=== PATIENT | male | born 1990 | race Caucasian/White ===

== ENCOUNTER 2018-08-19 12:43 | Inpatient (IN) ==
[2018-08-19] MEDS ORDERED: Diphtheria/Tetanus/Pertussis Vaccine Inj 0.5 ML Syringe IM ONE (12:49)
[2018-08-19] MEDS ORDERED: ceFAZolin 2 GM Premix Inj 2 GM/50 ML PIGGYBACK IV.SIG ONE (12:49)
[2018-08-19] MEDS ORDERED: Morphine Sulfate Inj 2 MG/ML Vial ONE (12:58)
[2018-08-19 13:09] LABS: Baso % (Auto) 0.3 % (0.0-2.0); Eos # (Auto) 0.2 th/mm3 (0.0-0.4); Eos % (Auto) 1.4 % (0.0-4.0); Hematocrit 40.1 % (39.0-51.0); Hemoglobin 13.4 gm/dL (13.0-17.0); Lymph # (Auto) 3.2 th/mm3 (1.0-4.8); Lymph % (Auto) 20.8 % (9.0-44.0); Mean Corpuscular HGB Conc 33.5 % (32.0-36.0); Mean Corpuscular Hemoglobin 28.7 pg (27.0-34.0); Mean Corpuscular Volume 85.8 fL (80.0-100.0); Mean Platelet Volume 9.5 fL (7.0-11.0); Mono # (Auto) 0.6 th/mm3 (0.0-0.9); Mono % (Auto) 4.1 % (0.0-8.0); Neut # (Auto) 11.2 th/mm3 (1.8-7.7); Neut % (Auto) 73.4 % (16.0-70.0); Platelet Count 228 th/mm3 (150-450); Red Blood Count 4.68 mil/mm3 (4.50-5.90); Red Cell Distribution Width 13.3 % (11.6-17.2); White Blood Count 15.2 th/mm3 (4.0-11.0)
--- NOTE | 2018-08-19 13:19 | CT ---
EXAM DATE: 08/19/2018 1:13 PM EST AGE/SEX: 89 years / Male INDICATIONS: Trauma alert fall from about eighteen feet CLINICAL DATA: This is the patient's initial encounter. Patient reports that signs and symptoms have been present for 1 day and indicates a pain score of Nonresponsive. MEDICAL/SURGICAL HISTORY: . Unable to obtain . Unable to obtain RADIATION DOSE: 56.35 CTDI (mGy) COMPARISON: No prior exams available for comparison. TECHNIQUE: CT of the head without contrast. Using automated exposure control and adjustment of the mA and/or kV according to patient size, radiation dose was kept as low as reasonably achievable to ob tain optimal diagnostic quality images. DICOM format image data is available electronically for revi ew and comparison. FINDINGS: Cerebrum: The ventricles are normal for age. No evidence of midline shift, mass lesion, hemorrhage or acute infarction. No extraaxial fluid collections are seen. Posterior Fossa: The cerebellum and brainstem are intact. The 4th ventricle is midline. The cerebe llopontine angle is unremarkable. Extracranial: The visualized portion of the orbits is intact. Skull: The calvaria is intact. No evidence of skull fracture. CONCLUSION: 1. No focal or acute intracranial hemorrhage. . . Electronically signed by: Tello Dowinng MD Board Certified Radiologist 08/19/2018 1:18 PM EST
--- NOTE | 2018-08-19 13:25 | XR ---
EXAM DATE: 08/19/2018 1:10 PM EST AGE/SEX: 89 years / Male INDICATIONS: Trauma alert, fall. CLINICAL DATA: This is the patient's initial encounter. Patient reports that signs and symptoms have been present for 1 day and indicates a pain score of Nonresponsive. MEDICAL/SURGICAL HISTORY: Non-responsive. Non-responsive. COMPARISON: No prior exams available for comparison. FINDINGS: There is a spiral fracture through the subtrochanteric region of the proximal left femur. The femoral head remains within the acetabulum. The mid and distal shaft of the femur appear to be grossly intac t. CONCLUSION: Spiral fracture through the subtrochanteric region of the proximal left femur. Electronically signed by: Tello Downing MD Board Certified Radiologist 08/19/2018 1:24 PM EST
--- NOTE | 2018-08-19 13:25 | XR ---
EXAM DATE: 08/19/2018 1:11 PM EST AGE/SEX: 89 years / Male INDICATIONS: Trauma alert, fall. CLINICAL DATA: This is the patient's initial encounter. Patient reports that signs and symptoms have been present for 1 day and indicates a pain score of Nonresponsive. MEDICAL/SURGICAL HISTORY: Non-responsive. Non-responsive. COMPARISON: No prior exams available for comparison. FINDINGS: Patient is on a trauma board. AP view of the pelvis demonstrates a spiral fracture through the subtro chanteric region of the left femur. No definite joint dislocation is seen at the hip joints. There is good alignment of the SI joints and pubic symphysis. However, there is irregularity involving the moreno perior and inferior pubic portions of the ramus bilaterally suggestive of nondisplaced pelvic fractur es.. CONCLUSION: 1. There is a spiral type fracture involving the subtrochanteric region of the left proximal femur. 2. There appear to be bilateral pelvic fractures. This will be further evaluated with a CT scan of t he abdomen/pelvis. Electronically signed by: Tello Downing MD Board Certified Radiologist 08/19/2018 1:23 PM EST
[2018-08-19 13:27] LABS: Activated Partial Thrombo Time 20.1 sec (23.4-31.7); Prothrombin Time 10.4 sec (9.8-11.6)
[2018-08-19] MEDS ORDERED: Morphine Sulfate Inj 2 MG/ML Vial IV.PUSH ONE (13:28)
--- NOTE | 2018-08-19 13:41 | XR ---
EXAM DATE: 08/19/2018 1:09 PM EST AGE/SEX: 89 years / Male INDICATIONS: Trauma alert, fall. CLINICAL DATA: This is the patient's initial encounter. Patient reports that signs and symptoms have been present for 1 day and indicates a pain score of Nonresponsive. MEDICAL/SURGICAL HISTORY: Non-responsive. Non-responsive. COMPARISON: No prior exams available for comparison. FINDINGS: A single AP view of the chest demonstrates the lungs to be symmetrically aerated without evidence of mass, infiltrate or effusion. The cardiomediastinal contours are unremarkable. Osseous structures a re intact. CONCLUSION: Negative for acute process Electronically signed by: Tone Jamil MD Board Certified Radiologist 08/19/2018 1:40 PM EST
--- NOTE | 2018-08-19 13:44 | CT ---
EXAM DATE: 08/19/2018 1:20 PM EST AGE/SEX: 89 years / Male INDICATIONS: Trauma alert fall from about eighteen feet. CLINICAL DATA: This is the patient's initial encounter. Patient reports that signs and symptoms have been present for 1 day and indicates a pain score of Nonresponsive. MEDICAL/SURGICAL HISTORY: . Unable to obtain . unable to obtain RADIATION DOSE: 15.89 CTDI (mGy) COMPARISON: No prior exams available for comparison. TECHNIQUE: Contiguous axial images were obtained using helical multirow detector technique. The vol umetric data was post-processed with multiplanar reconstruction in oblique axial, sagittal, and coron al planes. Using automated exposure control and adjustment of the mA and/or kV according to patient s ize, radiation dose was kept as low as reasonably achievable to obtain optimal diagnostic quality keny ges. DICOM format image data is available electronically for review and comparison. FINDINGS: Vertebrae: Normal vertebral body height. Alignment: Normal. No subluxation. C2-3: The bony spinal canal is normal in size. No evidence of disc bulge or herniation. The neural foramina are bilaterally patent. C3-4: The bony spinal canal is normal in size. No evidence of disc bulge or herniation. The neural foramina are bilaterally patent. C4-5: Minimal disc bulging causing some flattening the anterior thecal space. Neural foramen are juilanne quate. C5-6: Very minimal central to right-sided disc bulging without significant spinal stenosis. C6-7: The bony spinal canal is normal in size. No evidence of disc bulge or herniation. The neural foramina are bilaterally patent. C7-T1: The bony spinal canal is normal in size. No evidence of disc bulge or herniation. The neura l foramina are bilaterally patent. CONCLUSION: 1. Minimal disc bulging without fracture. 2. I Do not see significant degenerative change 3. MRI can offer more information. Electronically signed by: Tone Jamil MD Board Certified Radiologist 08/19/2018 1:43 PM EST
--- NOTE | 2018-08-19 13:49 | CT ---
EXAM DATE: 08/19/2018 1:36 PM EST AGE/SEX: 89 years / Male INDICATIONS: Trauma alert fall from about eighteen feet CLINICAL DATA: This is the patient's initial encounter. Patient reports that signs and symptoms have been present for 1 day and indicates a pain score of Nonresponsive. MEDICAL/SURGICAL HISTORY: . Unable to obtain . Unable to obtain ORAL CONTRAST: No oral contrast ingested. RADIATION DOSE: 5.70 CTDI (mGy) COMPARISON: No prior exams available for comparison. TECHNIQUE: Multiple contiguous axial images were obtained through the abdomen and pelvis following b olus infusion of 98 ml Omnipaque 350 (iohexol) nonionic water-soluble contrast as a cumulative dose for multiple exams. No oral contrast ingested. Using automated exposure control and adjustment of t he mA and/or kV according to patient size, radiation dose was kept as low as reasonably achievable to obtain optimal diagnostic quality images. DICOM format image data is available electronically for r eview and comparison. FINDINGS: Lower Lungs: The visualized lower lungs are clear. Liver: The liver has a homogeneous density without space-occupying lesion. There is no dilation of th e biliary tree. Spleen: Homogeneous density without enlargement. Pancreas: Unremarkable without mass or calcification. Kidneys: Normal in size and shape. No evidence of mass or hydronephrosis. There is a 5 mm nonobstruc ting stone midpole right kidney. Adrenal Glands: Unremarkable. Aorta: The aorta and proximal iliac vessels are grossly unremarkable without aneurysmal dilation. Bowel/Mesentery: The bowel loops are grossly unremarkable. The cecum and sigmoid colon have a normal configuration. Abdominal Wall: Intact. Retroperitoneum: No evidence of adenopathy in the retrocrural, para-aortic, or deep pelvic regions. Bladder: Contours are smooth. Reproductive Organs: No abnormal masses or calcifications seen. Inguinal: The inguinal region is unremarkable without evidence of adenopathy. Bony Structures: There is a spiral displaced fracture through the trochanteric to subtrochanteric re gion of the proximal left femur. There is no joint dislocation at the right or left hip joints. There is a nondisplaced fractures of the body of the left sacrum. There are fractures involving the superi or and inferior pubic rami on the left and right. There is good alignment at the SI joints. There is good alignment at the pubic symphysis. The bony structures and lumbar spine are grossly intact. CONCLUSION: 1. There is a spiral displaced fracture involving the trochanteric to subtrochanteric region of the proximal left femur. 2. Nondisplaced fracture involving the body of the left sacrum. 3. Bilateral fractures involving the superior and inferior pubic rami. 4. 5 mm nonobstructing stone midpole right kidney. Electronically signed by: Tello Downing MD Board Certified Radiologist 08/19/2018 1:48 PM EST
--- NOTE | 2018-08-19 13:52 | CT ---
EXAM DATE: 08/19/2018 1:35 PM EST AGE/SEX: 89 years / Male INDICATIONS: Trauma alert fall from eighteen feet CLINICAL DATA: This is the patient's initial encounter. Patient reports that signs and symptoms have been present for 2 days and indicates a pain score of Nonresponsive. MEDICAL/SURGICAL HISTORY: . Unable to obtain . Unable to obtain RADIATION DOSE: 5.70 CTDI (mGy) COMPARISON: No prior exams available for comparison. TECHNIQUE: Multiple contiguous axial images were obtained through the chest during bolus infusion of 98 ml Omnipaque 350 (iohexol) nonionic water-soluble contrast as a cumulative dose for multiple exa ms. Images were obtained in suspended respiration using multiple row detector helical technique. U sing automated exposure control and adjustment of the mA and/or kV according to patient size, radiati on dose was kept as low as reasonably achievable to obtain optimal diagnostic quality images. DICOM format image data is available electronically for review and comparison. FINDINGS: Lungs: The lungs are symmetrically aerated. No infiltrates or nodular densities are seen. Mediastinum: There is good visualization of the great vessels of the middle mediastinum. No evidenc e of mediastinal or hilar adenopathy/mass. Pleurae: No evidence of focal thickening or pleural effusion. Axillae: Unremarkable. Bony Structures: The bony structures are intact. Miscellaneous: The examination was extended to include the upper abdomen, and both adrenal glands ar e normal in size and configuration. CONCLUSION: 1. No focal or acute intrathoracic disease. Electronically signed by: Tello Downing MD Board Certified Radiologist 08/19/2018 1:51 PM EST
--- NOTE | 2018-08-19 14:40 | ED ---
HPI General Chief Complaint: Trauma Alert Stated Complaint: Trauma Alert Time Seen by Provider: 08/19/18 13:01 Source: patient and EMS Mode of arrival: EMS Limitations: physical limitation History of Present Illness HPI narrative: 27-year-old male complains of headache, left leg pain. Patient fell between 18 and 20 feet to the concrete ground before the visit. Patient reported had loss of consciousness. Patient complains of frontal headache, forehead laceration, severe sharp pain localized to left leg. Patient denies any visual change. Patient denies any neck pain. Patient denies any chest pain or shortness of breath. Patient denies abdominal pain. Patient denies any back pain. Patient complained of severe sharp pain localized to left leg. Patient denies any other injury. Patient speaks Upper Sorbian. Information obtained through my nurse official court interpreter. Patient denies any medical problems. Patient denies any allergy. Patient is not on routine medication. Patient denies any alcohol or drug abuse. Patient was brought in by air. complaint: Reports fall and injury Onset (ago): minute(s) Loss of Consciousness: yes Location: Reports head Location - Extremities: Left: thigh Severity: severe Severity scale (1-10): 10 Context: Reports fall Associated symptoms: Reports denies other symptoms Treatments prior to arrival: Reports IV, cervical collar and spinal immobilization Related Data Home Medications Medication Instructions Recorded Confirmed No Known Home Medications 08/19/18 08/19/18 Allergies Allergy/AdvReac Type Severity Reaction Status Date / Time No Known Allergies Allergy Verified 08/19/18 13:13 Review of Systems ROS: all other systems reviewed are negative PMFSH Medical History Medical History Patient denies medical problems (Acute) Surgical History Surgical History No history of previous surgery (Acute) Social History Social History Smoking Status: Current some day smoker Tobacco Type: Cigarettes How Often Do You Have a Drink Containing Alcohol: Monthly or less Immunization History Tetanus Immunization: <5 Years Tetanus Immunization Year if Known: 2019 Exam Narrative Exam Narrative: GENERAL: Well-nourished, well-developed patient. SKIN: Focused skin assessment warm/dry. HEAD: Normocephalic. Patient has a 4 cm laceration to the forehead. EYES: No scleral icterus. No injection or drainage. Pupils 2 mm equal reactive. NECK: Supple, trachea midline. No JVD or lymphadenopathy. No tenderness on palpation. C-collar in place. CARDIOVASCULAR: Regular rate and rhythm without murmurs, gallops, or rubs. RESPIRATORY: Breath sounds equal bilaterally. No accessory muscle use. GASTROINTESTINAL: Abdomen soft, non-tender, nondistended. MUSCULOSKELETAL: Soft tissue swelling with tenderness and deformity left thigh. Sensory motor function distally intact. BACK: Nontender without obvious deformity. No CVA tenderness. Neurologic exam: Patient is awake alert oriented x3. No obvious focal neurological deficit. Course Initial Documented Vital Signs Pulse Rate 88 08/19/18 13:28 Pulse Oximetry 98 08/19/18 13:28 Last Documented Vital Signs Pulse Rate 89 08/19/18 13:40 Respiratory Rate 16 08/19/18 13:40 Blood Pressure 140/88 08/19/18 13:40 Pulse Oximetry 98 08/19/18 13:40 Procedures Laceration Laceration 1: Site: face Size (cm): 3 Description: linear and irregular Depth: simple, single layer Anesthetic used: lidocaine 1% Anesthesia technique:: local infiltration Amount (mL): 5 Pre-repair:: wound explored, irrigated extensively and deep structures intact Skin layer closed with: prolene Size (cm): 4-0 Number of sutures:: 7 Technique:: simple, interrupted Medical Decision Making [facility] Narrative Medical decision making narrative: 27-year-old male complains of headache and also a laceration to the forehead and pain to left leg. Status post fall between 18 and 20 feet. Morphine and Zofran IV given. Laceration to the forehead was sutured. TD booster given. Ancef 2 g IV given. Medical Screen Exam Complete: Yes Emergency Medical Condition: Yes Lab Data Lab results reviewed: Yes I reviewed the patient's lab results. Result diagrams: 08/19/18 12:50 Lab Results 08/19/18 08/19/18 08/19/18 Range/Units 12:50 12:50 12:50 WBC 15.2 H (4.0-11.0) th/mm3 RBC 4.68 (4.50-5.90) mil/mm3 Hgb 13.4 (13.0-17.0) gm/dL POC Hgb (Calc) 13.3 (13.0-17.0) g/dL Hct 40.1 (39.0-51.0) % POC Hct 39.0 (39-51.0) % MCV 85.8 (80.0-100.0) fL MCH 28.7 (27.0-34.0) pg MCHC 33.5 (32.0-36.0) % RDW 13.3 (11.6-17.2) % Plt Count 228 (150-450) th/mm3 MPV 9.5 (7.0-11.0) fL Neut % (Auto) 73.4 H (16.0-70.0) % Lymph % (Auto) 20.8 (9.0-44.0) % [place] % (Auto) 4.1 (0.0-8.0) % Eos % (Auto) 1.4 (0.0-4.0) % Baso % (Auto) 0.3 (0.0-2.0) % Neut # (Auto) 11.2 H (1.8-7.7) th/mm3 Lymph # (Auto) 3.2 (1.0-4.8) th/mm3 [place] # (Auto) 0.6 (0.0-0.9) th/mm3 Eos # (Auto) 0.2 (0.0-0.4) th/mm3 Baso # (Auto) 0.0 (0.0-0.2) th/mm3 WBC Differential . Differential Comment Auto diff final PT 10.4 (9.8-11.6) sec INR 1.0 Ratio APTT 20.1 L (23.4-31.7) sec POC Sodium 140 (137-144) mmol/L POC Potassium 3.4 L (3.6-5.0) mmol/L POC Chloride 102 (102-111) mmol/L POC BUN 16 (5-21) mg/dL POC Creatinine 0.9 (0.6-1.3) mg/dL POC Glucose 144 H (68-110) mg/dL Blood Type Antibody Screen 08/19/18 Range/Units 12:50 WBC (4.0-11.0) th/mm3 RBC (4.50-5.90) mil/mm3 Hgb (13.0-17.0) gm/dL POC Hgb (Calc) (13.0-17.0) g/dL Hct (39.0-51.0) % POC Hct (39-51.0) % MCV (80.0-100.0) fL MCH (27.0-34.0) pg MCHC (32.0-36.0) % RDW (11.6-17.2) % Plt Count (150-450) th/mm3 MPV (7.0-11.0) fL Neut % (Auto) (16.0-70.0) % Lymph % (Auto) (9.0-44.0) % [place] % (Auto) (0.0-8.0) % Eos % (Auto) (0.0-4.0) % Baso % (Auto) (0.0-2.0) % Neut # (Auto) (1.8-7.7) th/mm3 Lymph # (Auto) (1.0-4.8) th/mm3 [place] # (Auto) (0.0-0.9) th/mm3 Eos # (Auto) (0.0-0.4) th/mm3 Baso # (Auto) (0.0-0.2) th/mm3 WBC Differential Differential Comment PT (9.8-11.6) sec INR Ratio APTT (23.4-31.7) sec POC Sodium (137-144) mmol/L POC Potassium (3.6-5.0) mmol/L POC Chloride (102-111) mmol/L POC BUN (5-21) mg/dL POC Creatinine (0.6-1.3) mg/dL POC Glucose (68-110) mg/dL Blood Type A Positive Antibody Screen Negative Imaging Data Attestation: I personally reviewed and interpreted this imaging study as follows : Radiologist's impression: Abdomen/Pelvis CT 08/19/18 12:45 CONCLUSION: 1. There is a spiral displaced fracture involving the trochanteric to subtrochanteric region of the proximal left femur. 2. Nondisplaced fracture involving the body of the left sacrum. 3. Bilateral fractures involving the superior and inferior pubic rami. 4. 5 mm nonobstructing stone midpole right kidney. Chest CT 08/19/18 12:45 CONCLUSION: 1. No focal or acute intrathoracic disease. Chest X-Ray 08/19/18 12:45 CONCLUSION: Negative for acute process Femur X-Ray 08/19/18 12:45 CONCLUSION: Spiral fracture through the subtrochanteric region of the proximal left femur. Pelvis X-Ray 08/19/18 12:45 CONCLUSION: 1. There is a spiral type fracture involving the subtrochanteric region of the left proximal femur. 2. There appear to be bilateral pelvic fractures. This will be further evaluated with a CT scan of the abdomen/pelvis. Cervical Spine CT 08/19/18 12:46 CONCLUSION: 1. Minimal disc bulging without fracture. 2. I Do not see significant degenerative change 3. MRI can offer more information. Head CT 08/19/18 12:46 CONCLUSION: 1. No focal or acute intracranial hemorrhage. . . Discharge Plan Discharge Disposition Patient Disposition: ED Admit(ED Internal Use Only) Discharge Order Discharge Orders: ED Use Only Admit Order (Routine); Ordered 08/19/18 Ordered By: Luís Serrano Discharge Details Diagnosis: Fracture of femur, intertrochanteric, left, closed, Fracture of pelvis, Forehead laceration Physicians Team ED Provider: Luís Serrano ED Midlevel Provider: Katharine Stewart Primary Care Provider: Primary Care Yulia,Shruti Attending Provider: Otoniel Childs Other Providers: Shirlene Angelo Status ED Status: Admitted Patient
[2018-08-19] MEDS ORDERED: Lidocaine 1% Inj 50 ML Vial INFILTRATN ONE (14:45)
[2018-08-19] MEDS ORDERED: Morphine Inj 4 MG/ML Vial IV.PUSH ONE (16:15)
--- NOTE | 2018-08-19 16:23 | ED ---
HPI General Chief Complaint: Trauma Alert Stated Complaint: Trauma Alert Time Seen by Provider: 08/19/18 13:01 Source: patient and EMS Mode of arrival: EMS Limitations: physical limitation History of Present Illness Onset (ago): minute(s) Associated symptoms: Reports denies other symptoms Treatments prior to arrival: Reports IV, cervical collar and spinal immobilization Related Data Home Medications Medication Instructions Recorded Confirmed No Known Home Medications 08/19/18 08/19/18 Allergies Allergy/AdvReac Type Severity Reaction Status Date / Time No Known Allergies Allergy Verified 08/19/18 13:13 [facility] Medical History Medical History Patient denies medical problems (Acute) Surgical History Surgical History No history of previous surgery (Acute) Social History Social History Substance History: No History of Abuse Second Hand Smoke Exposure: No Smoking Status: Current some day smoker Tobacco Type: Cigarettes How Often Do You Have a Drink Containing Alcohol: Monthly or less Immunization History Tetanus Immunization: <5 Years Tetanus Immunization Year if Known: 2019 Course Initial Documented Vital Signs Pulse Rate 88 08/19/18 13:28 Pulse Oximetry 98 08/19/18 13:28 Last Documented Vital Signs Temperature 98.8 F 08/20/18 12:00 Pulse Rate 84 08/20/18 12:00 Respiratory Rate 17 08/20/18 12:00 Blood Pressure 108/57 L 08/20/18 12:00 Pulse Oximetry 97 08/20/18 12:00 Medical Decision Making [facility] Narrative Medical Screen Exam Complete: Yes Emergency Medical Condition: Yes Lab Data Result diagrams: 08/20/18 07:12 08/20/18 07:12 Lab Results 08/19/18 08/19/18 08/19/18 Range/Units 12:50 12:50 12:50 WBC 15.2 H (4.0-11.0) th/mm3 RBC 4.68 (4.50-5.90) mil/mm3 Hgb 13.4 (13.0-17.0) gm/dL POC Hgb (Calc) 13.3 (13.0-17.0) g/dL Hct 40.1 (39.0-51.0) % POC Hct 39.0 (39-51.0) % MCV 85.8 (80.0-100.0) fL MCH 28.7 (27.0-34.0) pg MCHC 33.5 (32.0-36.0) % RDW 13.3 (11.6-17.2) % Plt Count 228 (150-450) th/mm3 MPV 9.5 (7.0-11.0) fL Prelim Diff (Auto) Neut % (Auto) 73.4 H (16.0-70.0) % Lymph % (Auto) 20.8 (9.0-44.0) % Door % (Auto) 4.1 (0.0-8.0) % Eos % (Auto) 1.4 (0.0-4.0) % Baso % (Auto) 0.3 (0.0-2.0) % Neut # (Auto) 11.2 H (1.8-7.7) th/mm3 Lymph # (Auto) 3.2 (1.0-4.8) th/mm3 Door # (Auto) 0.6 (0.0-0.9) th/mm3 Eos # (Auto) 0.2 (0.0-0.4) th/mm3 Baso # (Auto) 0.0 (0.0-0.2) th/mm3 WBC Differential . Diff Scan Differential Comment Auto diff final Platelet Estimate (Normal) Platelet Morphology (Normal) PT 10.4 (9.8-11.6) sec INR 1.0 Ratio APTT 20.1 L (23.4-31.7) sec POC Sodium 140 (137-144) mmol/L Sodium (136-145) meq/L POC Potassium 3.4 L (3.6-5.0) mmol/L Potassium (3.5-5.1) meq/L POC Chloride 102 (102-111) mmol/L Chloride (98-107) meq/L Carbon Dioxide (21.0-32.0) meq/L Anion Gap (5-15) meq/L POC BUN 16 (5-21) mg/dL BUN (7-18) mg/dL Creatinine (0.60-1.30) mg/dL POC Creatinine 0.9 (0.6-1.3) mg/dL Estimated GFR (>89) mL/min POC Glucose 144 H (68-110) mg/dL Random Glucose (74-106) mg/dL Calcium (8.5-10.1) mg/dL Blood Type Antibody Screen 08/19/18 08/20/18 08/20/18 Range/Units 12:50 07:12 07:12 WBC 9.7 (4.0-11.0) th/mm3 RBC 4.00 L (4.50-5.90) mil/mm3 Hgb 11.7 L (13.0-17.0) gm/dL POC Hgb (Calc) (13.0-17.0) g/dL Hct 34.7 L (39.0-51.0) % POC Hct (39-51.0) % MCV 86.7 (80.0-100.0) fL MCH 29.3 (27.0-34.0) pg MCHC 33.8 (32.0-36.0) % RDW 13.3 (11.6-17.2) % Plt Count 135 L D (150-450) th/mm3 MPV 8.9 (7.0-11.0) fL Prelim Diff (Auto) Slide review pending Neut % (Auto) 77.4 H (16.0-70.0) % Lymph % (Auto) 14.2 (9.0-44.0) % Door % (Auto) 7.8 (0.0-8.0) % Eos % (Auto) 0.3 (0.0-4.0) % Baso % (Auto) 0.3 (0.0-2.0) % Neut # (Auto) 7.5 (1.8-7.7) th/mm3 Lymph # (Auto) 1.4 (1.0-4.8) th/mm3 Door # (Auto) 0.8 (0.0-0.9) th/mm3 Eos # (Auto) 0.0 (0.0-0.4) th/mm3 Baso # (Auto) 0.0 (0.0-0.2) th/mm3 WBC Differential . Diff Scan Auto diff confirmed Differential Comment . Platelet Estimate Low L (Normal) Platelet Morphology Normal (Normal) PT (9.8-11.6) sec INR Ratio APTT (23.4-31.7) sec POC Sodium (137-144) mmol/L Sodium 138 (136-145) meq/L POC Potassium (3.6-5.0) mmol/L Potassium 4.2 (3.5-5.1) meq/L POC Chloride (102-111) mmol/L Chloride 107 (98-107) meq/L Carbon Dioxide 24.5 (21.0-32.0) meq/L Anion Gap 7 (5-15) meq/L POC BUN (5-21) mg/dL BUN 11 (7-18) mg/dL Creatinine 0.83 (0.60-1.30) mg/dL POC Creatinine (0.6-1.3) mg/dL Estimated GFR 80 L (>89) mL/min POC Glucose (68-110) mg/dL Random Glucose 96 (74-106) mg/dL Calcium 7.9 L (8.5-10.1) mg/dL Blood Type A Positive Antibody Screen Negative Imaging Data Radiologist's impression: Abdomen/Pelvis CT 08/19/18 12:45 CONCLUSION: 1. There is a spiral displaced fracture involving the trochanteric to subtrochanteric region of the proximal left femur. 2. Nondisplaced fracture involving the body of the left sacrum. 3. Bilateral fractures involving the superior and inferior pubic rami. 4. 5 mm nonobstructing stone midpole right kidney. Chest CT 08/19/18 12:45 CONCLUSION: 1. No focal or acute intrathoracic disease. Chest X-Ray 08/19/18 12:45 CONCLUSION: Negative for acute process Femur X-Ray 08/19/18 12:45 CONCLUSION: Spiral fracture through the subtrochanteric region of the proximal left femur. Pelvis X-Ray 08/19/18 12:45 CONCLUSION: 1. There is a spiral type fracture involving the subtrochanteric region of the left proximal femur. 2. There appear to be bilateral pelvic fractures. This will be further evaluated with a CT scan of the abdomen/pelvis. Cervical Spine CT 08/19/18 12:46 CONCLUSION: 1. Minimal disc bulging without fracture. 2. I Do not see significant degenerative change 3. MRI can offer more information. Head CT 08/19/18 12:46 CONCLUSION: 1. No focal or acute intracranial hemorrhage. . . Discharge Plan Discharge Disposition Patient Disposition: ED Admit(ED Internal Use Only) Discharge Order Discharge Orders: ED Use Only Admit Order (Routine); Ordered 08/19/18 Ordered By: Luís Serrano Discharge Details Diagnosis: Fracture of femur, intertrochanteric, left, closed, Fracture of pelvis, Forehead laceration Physicians Team ED Provider: Luís Serrano ED Midlevel Provider: Katharine Stewart Primary Care Provider: Primary Care Yulia,Shruti Attending Provider: Otoniel Childs Other Providers: Shirlene Angelo ; Cuate Adams ; Rafal Mendosa ; Systems,[employer] ; Otoniel Childs ; Marizol Mendoza ; Pako Peng ; Candie Cheung ; Eleazar Garvey ; Kerrie Galaviz Status ED Status: Left Department Discharge Information Discharge Date/Time: 08/19/18 19:05
[2018-08-19] MEDS: Sod Chloride 0.9% Inj 1,000 ML IV.CONT SCH (20:12)
--- NOTE | 2018-08-19 21:17 | MH ---
cc: Otoniel Childs MD DATE OF ADMISSION: 08/19/2018 DATE OF EVALUATION: 08/19/2018 HISTORY OF PRESENT ILLNESS: This is a patient who is a Indian-speaking male who was brought in as a level 2 trauma after a fall from a height of approximately 18-20 feet. The patient was worked up in the emergency room and found to have a femur fracture, pelvic fracture. Trauma service was requested for admission. The patient's history was obtained through translation. The patient is unable to recall the incident. He complains of pelvic pain and leg pain. He denies chest pain, shortness of breath. No abdominal pain. No paresthesias. PAST MEDICAL HISTORY: Denies. PAST SURGICAL HISTORY: Denies. ALLERGIES: NO KNOWN DRUG ALLERGIES. SOCIAL HISTORY: He does smoke. No alcohol use. PHYSICAL EXAMINATION: GENERAL: On exam, the patient is lying on the stretcher, in no acute distress. HEENT: His pupils are equal and reactive, 3 mm ecchymosis bilateral eye. Suture laceration to the forehead. NECK: In C-collar. LUNGS: Respirations clear. CARDIOVASCULAR: Regular. GASTROINTESTINAL: Soft, nontender. MUSCULOSKELETAL: Swelling to the left thigh. NEUROLOGIC: Nonfocal. LABORATORY DATA: Hemoglobin 13, hematocrit 40. RADIOLOGIC IMAGES: CT of the head, no intracranial hemorrhage. CT of the cervical spine, no fracture. CT of the chest negative. CT of the abdomen and pelvis spiral displaced fracture involving the trochanteric and subtrochanteric region of the proximal femur on the left. Left sacral fracture, bilateral superior and inferior pubic rami fracture. ASSESSMENT: This is a patient status post fall with above-stated injury. The patient is being admitted, orthopedics will be consulted. We will provide pain management, monitor neurological status as well as hemodynamics. MD ALBERTA Horan/kb/la , 08:30 PM , 08:37 PM
[2018-08-20] MEDS: Sod Chloride 0.9% Inj 1,000 ML IV.CONT SCH ×2 (06:03→18:57)
[2018-08-20] MEDS: Methocarbamol 500 MG Tablet PO SCH ×3 (06:20→22:33)
[2018-08-20 08:17] LABS: Baso % (Auto) 0.3 % (0.0-2.0); Eos % (Auto) 0.3 % (0.0-4.0); Hematocrit 34.7 % (39.0-51.0); Hemoglobin 11.7 gm/dL (13.0-17.0); Lymph # (Auto) 1.4 th/mm3 (1.0-4.8); Lymph % (Auto) 14.2 % (9.0-44.0); Mean Corpuscular HGB Conc 33.8 % (32.0-36.0); Mean Corpuscular Hemoglobin 29.3 pg (27.0-34.0); Mean Corpuscular Volume 86.7 fL (80.0-100.0); Mean Platelet Volume 8.9 fL (7.0-11.0); Mono # (Auto) 0.8 th/mm3 (0.0-0.9); Mono % (Auto) 7.8 % (0.0-8.0); Neut # (Auto) 7.5 th/mm3 (1.8-7.7); Neut % (Auto) 77.4 % (16.0-70.0); Platelet Count 135 th/mm3 (150-450); Red Cell Distribution Width 13.3 % (11.6-17.2); White Blood Count 9.7 th/mm3 (4.0-11.0)
[2018-08-20 08:35] LABS: Calcium 7.9 mg/dL (8.5-10.1); Carbon Dioxide 24.5 meq/L (21.0-32.0); Potassium 4.2 meq/L (3.5-5.1)
[2018-08-20] MEDS: Famotidine 20 MG Tablet PO SCH ×2 (09:04→22:33)
[2018-08-20] MEDS: Senna/Docusate Sodium 8.6/50 MG Tablet PO SCH ×2 (09:04→22:33)
[2018-08-20 09:57] LABS: Platelet Morphology Normal (Normal)
--- NOTE | 2018-08-20 13:01 | P.PN ---
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 Pain controlled OR today with Orthopedics Physical Exam Vital signs: Vital Signs 08/19/18 13:28 08/19/18 13:40 08/19/18 14:00 Temperature Pulse Rate 88 89 60 Respiratory Rate 16 16 Blood Pressure 140/88 136/80 Pulse Oximetry 98 98 97 08/19/18 15:00 08/19/18 16:24 08/19/18 18:38 Temperature Pulse Rate 70 73 80 Respiratory Rate 19 16 16 Blood Pressure 136/80 124/67 134/72 Pulse Oximetry 99 98 98 08/19/18 20:00 08/19/18 20:39 08/20/18 00:00 Temperature 97.7 F 99.0 F Pulse Rate 82 71 Respiratory Rate 16 17 Blood Pressure 126/69 107/55 L Pulse Oximetry 98 98 96 08/20/18 04:30 08/20/18 08:00 08/20/18 10:56 Temperature 98.1 F 97.2 F L Pulse Rate 83 82 Respiratory Rate 17 16 Blood Pressure 114/58 L 118/76 Pulse Oximetry 98 96 93 L 08/20/18 12:00 Temperature 98.8 F Pulse Rate 84 Respiratory Rate 17 Blood Pressure 108/57 L Pulse Oximetry 97 Intake & Output 08/19/18 08/20/18 08/20/18 18:59 06:59 18:59 Intake Total 50 / 50 1000 / 1000 Output Total 900 / 900 Balance 50 / 50 100 / 100 Weight 54.431 kg 54 kg Intake: IV 50 / 50 1000 / 1000 NS Inj 1,000 ML @ 100 mls/hr IV 1000 / 1000 .CONT .Q10H [facility] Rx#:[id number] Ancef 2 GM Premix Inj 2 gm In 50 / 50 50 ml @ 0 mls/hr IV.SIG .STK- [facility] Rx#:[id number] Output: Urine Amount (Catheter) 900 / 900 Indwelling Urethral Catheter 900 / 900 Narrative: GENERAL: 27-year-old male lying in bed no acute distress. SKIN: Warm and dry. BILAT periorbital ecchymosis noted. LEFT forehead lac with sutures in place. CARDIOVASCULAR: Regular rate and rhythm. RESPIRATORY: No accessory muscle use. Lungs clear to auscultation bilaterally. GASTROINTESTINAL: Abdomen soft, non-tender, nondistended. + BS. MUSCULOSKELETAL: Extremities without cyanosis, or edema. LEFT thigh pain with palpation. MAEW, + perfused GENITOURINARY: Clear yellow urine draining to bedside Kirby bag. NEUROLOGICAL: Awake and alert. Normal speech. - Urinary Catheter Management Indwelling Urethral Catheter Cath placed during this visit: yes Reason for continuing: Hourly intake/output Insertion date: 08/19/18 Insertion time: 18:30 Results - Labs CBC & Chem 7: 08/20/18 07:12 08/20/18 07:12 Laboratory Results - last 24 hr 08/19/18 08/19/18 08/19/18 12:50 12:50 12:50 WBC 15.2 H RBC 4.68 Hgb 13.4 POC Hgb (Calc) 13.3 Hct 40.1 POC Hct 39.0 MCV 85.8 MCH 28.7 MCHC 33.5 RDW 13.3 Plt Count 228 MPV 9.5 Prelim Diff (Auto) Neut % (Auto) 73.4 H Lymph % (Auto) 20.8 Simpson % (Auto) 4.1 Eos % (Auto) 1.4 Baso % (Auto) 0.3 Neut # (Auto) 11.2 H Lymph # (Auto) 3.2 Simpson # (Auto) 0.6 Eos # (Auto) 0.2 Baso # (Auto) 0.0 WBC Differential . Diff Scan Differential Comment Auto diff final Platelet Estimate Platelet Morphology PT 10.4 INR 1.0 APTT 20.1 L POC Sodium 140 Sodium POC Potassium 3.4 L Potassium POC Chloride 102 Chloride Carbon Dioxide Anion Gap POC BUN 16 BUN Creatinine POC Creatinine 0.9 Estimated GFR POC Glucose 144 H Random Glucose Calcium Blood Type Antibody Screen 08/19/18 08/20/18 08/20/18 12:50 07:12 07:12 WBC 9.7 RBC 4.00 L Hgb 11.7 L POC Hgb (Calc) Hct 34.7 L POC Hct MCV 86.7 MCH 29.3 MCHC 33.8 RDW 13.3 Plt Count 135 L D MPV 8.9 Prelim Diff (Auto) Slide review pending Neut % (Auto) 77.4 H Lymph % (Auto) 14.2 Simpson % (Auto) 7.8 Eos % (Auto) 0.3 Baso % (Auto) 0.3 Neut # (Auto) 7.5 Lymph # (Auto) 1.4 Simpson # (Auto) 0.8 Eos # (Auto) 0.0 Baso # (Auto) 0.0 WBC Differential . Diff Scan Auto diff confirmed Differential Comment . Platelet Estimate Low L Platelet Morphology Normal PT INR APTT POC Sodium Sodium 138 POC Potassium Potassium 4.2 POC Chloride Chloride 107 Carbon Dioxide 24.5 Anion Gap 7 POC BUN BUN 11 Creatinine 0.83 POC Creatinine Estimated GFR 80 L POC Glucose Random Glucose 96 Calcium 7.9 L Blood Type A Positive Antibody Screen Negative - Imaging Impressions Abdomen/Pelvis CT 08/19/18 12:45 CONCLUSION: 1. There is a spiral displaced fracture involving the trochanteric to subtrochanteric region of the proximal left femur. 2. Nondisplaced fracture involving the body of the left sacrum. 3. Bilateral fractures involving the superior and inferior pubic rami. 4. 5 mm nonobstructing stone midpole right kidney. Chest CT 08/19/18 12:45 CONCLUSION: 1. No focal or acute intrathoracic disease. Chest X-Ray 08/19/18 12:45 CONCLUSION: Negative for acute process Femur X-Ray 08/19/18 12:45 CONCLUSION: Spiral fracture through the subtrochanteric region of the proximal left femur. Pelvis X-Ray 08/19/18 12:45 CONCLUSION: 1. There is a spiral type fracture involving the subtrochanteric region of the left proximal femur. 2. There appear to be bilateral pelvic fractures. This will be further evaluated with a CT scan of the abdomen/pelvis. Cervical Spine CT 08/19/18 12:46 CONCLUSION: 1. Minimal disc bulging without fracture. 2. I Do not see significant degenerative change 3. MRI can offer more information. Head CT 08/19/18 12:46 CONCLUSION: 1. No focal or acute intracranial hemorrhage. . . Assessment and Plan - Plan [place]: Fell ~20 feet landing on the concrete. + LOC. INJURIES: Forehead lac (sutures) Concussion BILAT superior and inferior pubic rami fxs Sacral fx Subtrochanteric LEFT femur fx PMHx: Current smoker Forehead lac Supportive care Wound care: Cleanse wound daily with soap and water. Leave open to air Sutures intact Concussion Supportive care Avoid second head injury Post-concussive education BILAT superior and inferior pubic rami fxs, Sacral fx, Subtrochanteric LEFT femur fx Orthopedics consulted OR today with orthopedics for left femur repair Pain control Bowel regimen Smoking cessation Plan of care discussed with patient and sister at bedside. D/W RN Collaborating Trauma surgeon agrees with plan. Case management consulted to assist with discharge planning.
--- NOTE | 2018-08-20 13:08 | P.CONOP ---
[facility] Orthopedics Consult Note - [facility] Consult date: 08/20/18 Requesting physician: Luís Serrano Consult reason: fracture Chief complaint: Fracture left femur. Pelvis fracture. Forehead Narrative: 27 year old male was at work when he fell from a ladder. He was brought to the emergency room as a trauma alert. Workup revealed a left subtrochanteric femur fracture, left sacral fracture and bilateral pubic rami fractures. Orthopedics was consulted for further management. He complains of pain to the left hip as well as pain to the forehead. Denies numbness or tingling. Review of Systems All other systems reviewed negative except as stated in [facility] [place] - History History Provided By: Patient, Family Member - Medical History Medical History: Medical History (Last Reviewed 08/20/18 @ 13:05 by Shirlene Angelo MD) Patient denies medical problems - Surgical History Surgical History: Surgical History (Last Reviewed 08/20/18 @ 13:05 by Shirlene Angelo MD) No history of previous surgery - Social History I have reviewed the patient's Social History: Yes - Tobacco History Second Hand Smoke Exposure: No Tobacco Use In Past 30 Days: Yes Smoking Status: Current some day smoker Tobacco Type: Cigarettes - Alcohol History How Often Do You Have a Drink Containing Alcohol: Monthly or less - Substance Use History Substance History: No History of Abuse - Immunization History Tetanus Immunization: <5 Years Tetanus Immunization Year if Known: 2019 Hx Influenza Vaccine This Season: No Medications and Allergies Active Medications: Active Medications Bacitracin (Baciguent Oint) 1 applicatio TOPICAL BID [facility] Last Admin: 08/20/18 09:14 Dose: 1 applicatio Enalaprilat (Vasotec Inj) 1.25 mg IV.PUSH Q8H PRN PRN Reason: SBP>180, DBP>95 Famotidine (Pepcid) 20 mg PO BID [facility] Last Admin: 08/20/18 09:04 Dose: Not Given Sodium Chloride (Ns Inj) 1,000 mls @ 100 mls/hr IV.CONT .Q10H [facility] Last Admin: 08/20/18 06:03 Dose: 100 mls/hr Lactulose (Lactulose Liq) 30 ml PO DAILY PRN PRN Reason: CONSTIPATION Methocarbamol (Robaxin) 500 mg PO Q8HR [facility] Last Admin: 08/20/18 06:20 Dose: 500 mg Morphine Sulfate (Morphine Inj) 4 mg IV.PUSH Q4H PRN PRN Reason: BREAKTHROUGH PAIN Ondansetron HCl (Zofran Inj) 4 mg IV.PUSH Q6H PRN PRN Reason: NAUSEA OR VOMITING Oxycodone HCl (Roxicodone) 5 mg PO Q4H PRN PRN Reason: Pain 1-5 Oxycodone HCl (Roxicodone) 10 mg PO Q4H PRN PRN Reason: Pain 6-10 Last Admin: 08/20/18 09:13 Dose: 10 mg Senna/Docusate Sodium (Jacqueline-Colace) 1 tab PO BID [facility] Last Admin: 08/20/18 09:04 Dose: Not Given Sodium Chloride (Ns Flush) 2 ml IV.FLUSH UNSCH PRN PRN Reason: FLUSH AFTER USING IV ACCESS Allergies Allergy/AdvReac Type Severity Reaction Status Date / Time No Known Allergies Allergy Verified 08/19/18 13:13 Home Medications Medication Instructions Recorded Confirmed Type No Known Home Medications 08/19/18 08/19/18 History Exam Vital signs: Vital Signs 08/19/18 13:28 08/19/18 13:40 08/19/18 14:00 Temperature Pulse Rate 88 89 60 Respiratory Rate 16 16 Blood Pressure 140/88 136/80 Pulse Oximetry 98 98 97 08/19/18 15:00 08/19/18 16:24 08/19/18 18:38 Temperature Pulse Rate 70 73 80 Respiratory Rate 19 16 16 Blood Pressure 136/80 124/67 134/72 Pulse Oximetry 99 98 98 08/19/18 20:00 08/19/18 20:39 08/20/18 00:00 Temperature 97.7 F 99.0 F Pulse Rate 82 71 Respiratory Rate 16 17 Blood Pressure 126/69 107/55 L Pulse Oximetry 98 98 96 08/20/18 04:30 08/20/18 08:00 08/20/18 10:56 Temperature 98.1 F 97.2 F L Pulse Rate 83 82 Respiratory Rate 17 16 Blood Pressure 114/58 L 118/76 Pulse Oximetry 98 96 93 L 08/20/18 12:00 Temperature 98.8 F Pulse Rate 84 Respiratory Rate 17 Blood Pressure 108/57 L Pulse Oximetry 97 Intake & Output 02/25/19 02/26/19 02/26/19 18:59 06:59 18:59 Intake Total 50 / 50 1000 / 1000 Output Total 900 / 900 Balance 50 / 50 100 / 100 Weight 54.431 kg 54 kg Intake: IV 50 / 50 1000 / 1000 NS Inj 1,000 ML @ 100 mls/hr IV 1000 / 1000 .CONT .Q10H [facility] Rx#:[id number] Ancef 2 GM Premix Inj 2 gm In 50 / 50 50 ml @ 0 mls/hr IV.SIG .STK- [facility] Rx#:[id number] Output: Urine Amount (Catheter) 900 / 900 Indwelling Urethral Catheter 900 / 900 - Constitutional no acute distress - Routine Neck Exam Present: supple - Routine Respiratory Exam Absent: accessory muscle use - Routine Cardiovascular Exam Present: RRR - Routine Extremities Exam Comments: Left leg shortened and held in external rotation. 2+DP. Wiggles all toes with intact sensation. Skin intact. Right leg without tenderness to palpation. Negative log roll. Full nonpainful range of motion. 2+DP. Wiggles all toes with sensation intact. Bilateral upper extremities with full range of motion without pain. 2+ radial pulses. Wiggles all fingers. Sensation intact. Results - Labs Result Diagrams: 08/20/18 07:12 08/20/18 07:12 Labs: Laboratory Results - last 24 hr 08/19/18 08/19/18 08/19/18 12:50 12:50 12:50 WBC 15.2 H RBC 4.68 Hgb 13.4 POC Hgb (Calc) 13.3 Hct 40.1 POC Hct 39.0 MCV 85.8 MCH 28.7 MCHC 33.5 RDW 13.3 Plt Count 228 MPV 9.5 Prelim Diff (Auto) Neut % (Auto) 73.4 H Lymph % (Auto) 20.8 Ogle % (Auto) 4.1 Eos % (Auto) 1.4 Baso % (Auto) 0.3 Neut # (Auto) 11.2 H Lymph # (Auto) 3.2 Ogle # (Auto) 0.6 Eos # (Auto) 0.2 Baso # (Auto) 0.0 WBC Differential . Diff Scan Differential Comment Auto diff final Platelet Estimate Platelet Morphology PT 10.4 INR 1.0 APTT 20.1 L POC Sodium 140 Sodium POC Potassium 3.4 L Potassium POC Chloride 102 Chloride Carbon Dioxide Anion Gap POC BUN 16 BUN Creatinine POC Creatinine 0.9 Estimated GFR POC Glucose 144 H Random Glucose Calcium Blood Type Antibody Screen 08/19/18 08/20/18 08/20/18 12:50 07:12 07:12 WBC 9.7 RBC 4.00 L Hgb 11.7 L POC Hgb (Calc) Hct 34.7 L POC Hct MCV 86.7 MCH 29.3 MCHC 33.8 RDW 13.3 Plt Count 135 L D MPV 8.9 Prelim Diff (Auto) Slide review pending Neut % (Auto) 77.4 H Lymph % (Auto) 14.2 Ogle % (Auto) 7.8 Eos % (Auto) 0.3 Baso % (Auto) 0.3 Neut # (Auto) 7.5 Lymph # (Auto) 1.4 Ogle # (Auto) 0.8 Eos # (Auto) 0.0 Baso # (Auto) 0.0 WBC Differential . Diff Scan Auto diff confirmed Differential Comment . Platelet Estimate Low L Platelet Morphology Normal PT INR APTT POC Sodium Sodium 138 POC Potassium Potassium 4.2 POC Chloride Chloride 107 Carbon Dioxide 24.5 Anion Gap 7 POC BUN BUN 11 Creatinine 0.83 POC Creatinine Estimated GFR 80 L POC Glucose Random Glucose 96 Calcium 7.9 L Blood Type A Positive Antibody Screen Negative - Diagnostic results Imaging: Impressions Abdomen/Pelvis CT 08/19/18 12:45 CONCLUSION: 1. There is a spiral displaced fracture involving the trochanteric to subtrochanteric region of the proximal left femur. 2. Nondisplaced fracture involving the body of the left sacrum. 3. Bilateral fractures involving the superior and inferior pubic rami. 4. 5 mm nonobstructing stone midpole right kidney. Chest CT 08/19/18 12:45 CONCLUSION: 1. No focal or acute intrathoracic disease. Chest X-Ray 08/19/18 12:45 CONCLUSION: Negative for acute process Femur X-Ray 08/19/18 12:45 CONCLUSION: Spiral fracture through the subtrochanteric region of the proximal left femur. Pelvis X-Ray 08/19/18 12:45 CONCLUSION: 1. There is a spiral type fracture involving the subtrochanteric region of the left proximal femur. 2. There appear to be bilateral pelvic fractures. This will be further evaluated with a CT scan of the abdomen/pelvis. Cervical Spine CT 08/19/18 12:46 CONCLUSION: 1. Minimal disc bulging without fracture. 2. I Do not see significant degenerative change 3. MRI can offer more information. Head CT 08/19/18 12:46 CONCLUSION: 1. No focal or acute intracranial hemorrhage. . . Assessment and Plan - Assessment and Plan 27 year old male with left subtrochanteric femur fracture, left sacral fracture and bilateral pubic rami fractures Plan: Recommend operative treatment of his left femur fracture with intramedullary nailing. Risks, benefits, alternatives discussed with the patient at bedside who wishes to proceed. Nonoperative treatment for his pelvic fractures at this time. Keep NPO for surgery.
[2018-08-20] MEDS ORDERED: Chlorhexidine Gluconate 2% 1 Pack (2 Cloths) TOPICAL ONE (15:00)
[2018-08-20] MEDS ORDERED: Metoprolol Tartrate 25 MG Tablet PO ONE (15:00)
[2018-08-20] MEDS ORDERED: Sodium Chlor 0.9% Inj 500 ML IV.CONT ONE (15:00)
[2018-08-20] MEDS ORDERED: Succinylcholine Inj 100 MG/5 ML Syringe IV.PUSH ONE (15:45)
[2018-08-20] MEDS ORDERED: Neostigmine Inj 5 MG/5 ML Syringe IV.PUSH ONE (15:45)
[2018-08-20] MEDS ORDERED: Lidocaine PF 1% Inj 5 ML Syringe OTHER ONE (15:45)
[2018-08-20] MEDS ORDERED: Phenylephrine/NS 1000 MCG/10ML Syringe IV.PUSH ONE (15:45)
[2018-08-20] MEDS ORDERED: Glycopyrrolate Inj 1 MG/5 ML Syringe IV.PUSH ONE (15:45)
[2018-08-20] MEDS ORDERED: fentaNYL Citrate Inj 100 MCG/2 ML Ampul ONE ×2 (16:48)
[2018-08-20] MEDS ORDERED: *Meperidine Inj 25 MG/ML Vial PERIprocedural Use ONLY ONE (18:37)
--- NOTE | 2018-08-20 18:55 | P.OP ---
- Preoperative Diagnosis (1) Subtrochanteric fracture of left femur - Postoperative Diagnosis (1) Subtrochanteric fracture of left femur Date of procedure: 08/20/18 Procedure: open reduction internal fixation left femur fracture Implants: Synthes TNFNa [id number] 85mm helical blade Anesthesia: ORAA Surgeon: Shirlene Angelo MD Estimated blood loss (mL): 200 Pathology: none sent Operation and Findings: Indications for procedure: This is a 27 year old male brought in as a trauma alert after falling off a ladder. He was found to have a left subtrochanteric femur fracture as well as a left sacral fracture and bilateral pubic rami fractures. Operative treatment of his femur fracture was recommended to the patient. Risks, benefits, and alternatives were discussed with the patient preoperatively. Risks include but are not limited to infection, bleeding, damage to neurovascular structures, malunion, nonunion, and the potential need for further surgical procedures. Patient verbalized understanding and wished to proceed. Description of procedure: The patient was brought to the operating room and general anesthesia was administered. The left foot and ankle was then wrapped in coban and he was transferred to the fracture table. The left leg was placed in the traction boot and the right leg placed in the well leg rosales which was well padded. Once he was appropriately positioned on the table, the fracture was manipulated under fluoroscopic guidance until good alignment of the fracture was obtained. At this point, the left hip and left lower extremity was then prepped and draped in the usual sterile manner. Preoperative antibiotics were given. After appropriate timeout, an incision was made over the lateral aspect of the femur a clamp was placed to hold the fracture reduced. Another incision was made proximal to the greater trochanter and a guidewire was placed in into the tip of the greater trochanter. Appropriate starting point was confirmed on AP and lateral views, and then the soft tissue protector and opening reamer were placed over the guidewire to open the canal. These were removed and a ball tip guidewire was placed. Length was measured and a 360mm length was selected. The canal was reamed sequentially up to 11 mm where good chatter was encountered. A [id number] nail was then inserted into the canal and the guidewire removed. X-ray was used to confirm proper seating of the nail. A small incision was then made for the helical blade guide placement. A guidewire was inserted and proper position confirmed with AP and lateral x-ray. This was then measured and drilled for placement of the 85 mm helical blade. The nail was locked proximally. I then made another small incision distally to insert a distal locking screw in the dynamic hole using the perfect circles method. The jig was then removed and final fluoroscopic images were taken confirming good fracture reduction and hardware placement. The wounds were then irrigated and closed in a layered fashion with 0-vicryl, 2-0 vicryl and jana. Sterile dressings were placed over the incision sites. The patient was then transferred back to his hospital bed, awoken from general anesthesia and transferred to the recovery room in good condition. Disposition: He is toe touch weightbearing on the left lower extremity due to his sacral fracture. Follow up in clinic in 2 weeks.
--- NOTE | 2018-08-20 19:08 | XR ---
EXAM DATE: 08/20/2018 6:54 PM EST AGE/SEX: 27 years / Male INDICATIONS: Orif left femur. CLINICAL DATA: This is the patient's subsequent encounter. Patient reports that signs and symptoms h ave been present for 2 days and indicates a pain score of Nonresponsive. MEDICAL/SURGICAL HISTORY: None. None. COMPARISON: [facility] – [place], CT ABDOMEN & PELVIS W CONTRAST, 08/19/2018. . FINDINGS: Fluoroscopic images demonstrate interval intramedullary avery fixation of left femoral subtrochanteric fracture. Hardware appears well-positioned. There is near-anatomic alignment of the fracture fragment s. CONCLUSION: 1. Left femoral ORIF, as above. Electronically signed by: Dennis Vasquez MD Board Certified Radiologist 08/20/2018 7:07 PM EST
[2018-08-20] MEDS ORDERED: *morphine SULFATE 10 MG/ML PERIprocedure ONLY ONE (19:15)
--- NOTE | 2018-08-20 19:49 | ECG ---
Date Performed: 08/20/2018 Time Performed: 07:36:15 PTAGE: 89 years EKG: Sinus rhythm NORMAL ECG NO PREVIOUS TRACING DOCTOR: Filiberto Resendez Interpretating Date/Time 08/20/2018 19:47:35
[2018-08-21 04:53] LABS: Baso % (Auto) 0.1 % (0.0-2.0); Hematocrit 29.9 % (39.0-51.0); Hemoglobin 10.3 gm/dL (13.0-17.0); Lymph # (Auto) 0.6 th/mm3 (1.0-4.8); Lymph % (Auto) 5.6 % (9.0-44.0); Mean Corpuscular HGB Conc 34.5 % (32.0-36.0); Mean Corpuscular Hemoglobin 29.5 pg (27.0-34.0); Mean Corpuscular Volume 85.4 fL (80.0-100.0); Mono # (Auto) 0.7 th/mm3 (0.0-0.9); Mono % (Auto) 6.8 % (0.0-8.0); Neut # (Auto) 8.8 th/mm3 (1.8-7.7); Neut % (Auto) 87.5 % (16.0-70.0); Platelet Count 130 th/mm3 (150-450); Red Blood Count 3.51 mil/mm3 (4.50-5.90)
[2018-08-21 05:10] LABS: Anion Gap 6 meq/L (5-15); Blood Urea Nitrogen 9 mg/dL (7-18); Carbon Dioxide 27.4 meq/L (21.0-32.0); Chloride 107 meq/L (98-107); Glomerular Filtration Rate Greater Than 89 mL/min (>89); Glucose,Random 132 mg/dL (74-106); Potassium 4.3 meq/L (3.5-5.1); Sodium 140 meq/L (136-145)
[2018-08-21] MEDS: Methocarbamol 500 MG Tablet PO SCH ×3 (05:34→22:46)
[2018-08-21] MEDS: Enoxaparin Inj 30 MG/0.3 ML Syringe SQ SCH ×2 (09:41→22:47)
[2018-08-21] MEDS: Famotidine 20 MG Tablet PO SCH ×2 (09:42→22:45)
[2018-08-21] MEDS: Senna/Docusate Sodium 8.6/50 MG Tablet PO SCH ×2 (09:42→22:46)
[2018-08-21] MEDS: Morphine Inj 4 MG/ML Vial IV.PUSH PRN ×2 (10:36→18:41)
--- NOTE | 2018-08-21 11:44 | P.PN ---
Subjective Interval history: Trauma PTD: 2 Patient sitting up in bed. No distress noted. Patient complains of pain to left lower extremity. Physical Exam Vital signs: Vital Signs 08/20/18 12:00 08/20/18 18:30 08/20/18 18:31 Temperature 98.8 F 97.4 F L Pulse Rate 84 84 81 Respiratory Rate 17 12 Blood Pressure 108/57 L 123/75 Pulse Oximetry 97 100 100 08/20/18 18:45 08/20/18 19:00 08/20/18 19:15 Temperature 97.8 F Pulse Rate 78 74 84 Respiratory Rate 10 L 10 L 10 L Blood Pressure 114/56 L 115/57 L 120/62 Pulse Oximetry 100 100 100 08/20/18 19:49 08/20/18 20:00 08/21/18 00:00 Temperature 98.0 F 98.0 F Pulse Rate 82 73 Respiratory Rate 17 18 Blood Pressure 114/55 L 102/54 L Pulse Oximetry 100 95 96 08/21/18 04:00 08/21/18 08:00 Temperature 98.5 F 97.8 F Pulse Rate 82 80 Respiratory Rate 18 18 Blood Pressure 98/53 L 104/52 L Pulse Oximetry 97 96 Intake & Output 08/20/18 08/21/18 08/21/18 18:59 06:59 18:59 Intake Total 2900 / 2900 1100 / 1100 Output Total 1000 / 1000 1600 / 1600 Balance 1900 / 1900 -500 / -500 Weight 54.3 kg Intake: IV 1000 / 1000 500 / 500 NS Inj 1,000 ML @ 100 mls/hr IV 1000 / 1000 500 / 500 .CONT .Q10H [facility] Rx#:[id number] Oral 600 / 600 Anesthesia Amount 1900 / 1900 Output: Urine 400 / 400 1100 / 1100 Stool 0 / 0 Estimated Blood Loss 200 / 200 Urine Amount (Catheter) 400 / 400 500 / 500 Indwelling Urethral Catheter 400 / 400 500 / 500 Narrative: GENERAL: This is a 27-year-old male lying in bed. No distress noted. SKIN: Warm and dry. HEAD: Atraumatic. Normocephalic. EYES: PERRLA ENT: No nasal bleeding or discharge. Mucous membranes pink and moist. NECK: Trachea midline. No JVD. CARDIOVASCULAR: Regular rate and rhythm. RESPIRATORY: No accessory muscle use. Lungs are clear to auscultation. Breath sounds equal bilaterally. No distress or dyspnea. GASTROINTESTINAL: BS + x 4 quads. Abdomen soft, non-tender, nondistended. MUSCULOSKELETAL: Extremities without cyanosis, or edema. + peripheral pulses x 4 extremities. Warm with good capillary refill and sensation. MAEW. NEUROLOGICAL: Awake and alert. Normal speech and pattern. - Urinary Catheter Management Indwelling Urethral Catheter Cath placed during this visit: yes Reason for continuing: Hourly intake/output Insertion date: 08/19/18 Insertion time: 18:30 Results - Labs CBC & Chem 7: 08/21/18 04:09 08/21/18 04:09 Laboratory Results - last 24 hr 08/21/18 08/21/18 04:09 04:09 WBC 10.0 RBC 3.51 L Hgb 10.3 L Hct 29.9 L MCV 85.4 MCH 29.5 MCHC 34.5 RDW 13.0 Plt Count 130 L MPV 9.0 Neut % (Auto) 87.5 H Lymph % (Auto) 5.6 L [place] % (Auto) 6.8 Eos % (Auto) 0.0 Baso % (Auto) 0.1 Neut # (Auto) 8.8 H Lymph # (Auto) 0.6 L [place] # (Auto) 0.7 Eos # (Auto) 0.0 Baso # (Auto) 0.0 WBC Differential . Differential Comment Auto diff final Sodium 140 Potassium 4.3 Chloride 107 Carbon Dioxide 27.4 Anion Gap 6 BUN 9 Creatinine 0.73 Estimated GFR Greater than 89 Random Glucose 132 H Calcium 8.0 L - Imaging Impressions Femur X-Ray 08/20/18 00:00 CONCLUSION: 1. Left femoral ORIF, as above. Assessment and Plan - Assessment (1) Fracture of femur, intertrochanteric, left, closed Code(s): S72.142A - Displaced intertrochanteric fracture of left femur, initial encounter for closed fracture Status: Acute (2) Fracture of pelvis Code(s): S32.9XXA - Fracture of unspecified parts of lumbosacral spine and pelvis, initial encounter for closed fracture Status: Acute (3) Forehead laceration Code(s): S01.81XA - Laceration without foreign body of other part of head, initial encounter Status: Acute (4) Subtrochanteric fracture of left femur Code(s): S72.22XA - Displaced subtrochanteric fracture of left femur, initial encounter for closed fracture Status: Acute - Plan [place]: This is a 27-year-old male who sustained a fall. He fell approximately 20 feet landing on the concrete. Positive LOC. INJURIES: Forehead lac (sutures) Concussion BILAT superior and inferior pubic rami fxs (non-op) Sacral fx (non-op) Subtrochanteric LEFT femur fx PMHx: Current smoker Procedures: 08/20: ORIF LEFT femur fx Consults: Orthopedics. Case management. Diet: Regular diet. Tolerating po diet. Encourage good po intake with each meal. Pulmonary: Encourage good pulmonary toileting. IS at bedside and pt encouraged to use. Rationale for use explained to patient, and verbalized understanding. PAIN Management: Oxycodone 5-10mg q4h. Morphine 4mg q4h for breakthrough pain. Robaxin 500 mg q8h Activity: OOB. PT and OT ordered. (TTWE LLE; WBAT RLE) GI prophylaxis: Pepcid 20 mg BID po Bowel regimen: Jacqueline-colace. MOM. Lactulose PRN. LBM: 0 DVT prophylaxis: Mechanical VTE with SCDs. Chemical management with Lovenox 30 mg BID SQ. DC Planning: Case management consulted for assistance with final discharge disposition. PT recommends [facility] PT. [id number] completed. DME ordered. Plan for discharge tomorrow if pain controlled. Emotional support provided to patient and family at bedside and plan of care discussed. Discussed with RN at bedside. Discussed pt condition and plan of care with collaborating trauma surgeon. Patient is hemodynamically stable and being managed on the med/surg floor. The trauma team will round each day, and evaluate plan of care on a daily basis. Forehead lac (sutures) Concussion Supportive care Serial neuro checks Prevent secondary head injury Postconcussive education Follow-up in concussion clinic outpatient Wash suture line daily with soap and water. Pat dry. Leave open to air. BILAT superior and inferior pubic rami fxs (non-op) Sacral fx (non-op) Subtrochanteric LEFT femur fx Orthopedics consulted and assisting in management and care 08/20: ORIF LEFT femur fx Supportive care Antibiotic per orthopedics Dressing changes per orthopedic recommendations Pain management Encourage out of bed PT and OT ordered TTWE LLE; WBAT RLE Bowel regimen SCDs and Lovenox for DVT prophylaxis Pre-existing conditions Current every day smoker Smoking cessation education (1) Fracture of femur, intertrochanteric, left, closed Qualifiers: Encounter type: initial encounter Fracture alignment: displaced Qualified Code(s): S72.142A - Displaced intertrochanteric fracture of left femur, initial encounter for closed fracture (2) Fracture of pelvis Qualifiers: Encounter type: initial encounter Pelvic bone location: pubis Sublocation of pubis: other portion of pubis Fracture type: closed Laterality: unspecified laterality Qualified Code(s): S32.599A - Other specified fracture of unspecified pubis, initial encounter for closed fracture (3) Forehead laceration Qualifiers: Encounter type: initial encounter Qualified Code(s): S01.81XA - Laceration without foreign body of other part of head, initial encounter (4) Subtrochanteric fracture of left femur Qualifiers: Encounter type: initial encounter Fracture type: closed Fracture alignment: displaced Qualified Code(s): S72.22XA - Displaced subtrochanteric fracture of left femur, initial encounter for closed fracture
--- NOTE | 2018-08-21 13:01 | P.DIET ---
Nutritional Evaluation Type of nutrition evaluation: initial Screening comments: BMI Screen BMI = 17.2 Subjective Subjective Comments: Pt is [place] speaking. Info obtained from chart review. Good appetite and no unplanned weight loss reported. Pt is eating 100% of regular diet. Objective - Diagnosis L femur fx, pelvic fx, forehead injury - Objective % IBW: 72 (IBW = 166#) Body Weight Used for Calculations: Actual (54.3 kg) Energy Needs - Lower Range (kCal/kg): 35 Energy Needs - Upper Range (kCal/kg): 40 Lower Limit kCal/kg (kCals): 1,901 Upper Limit kCal/kg (kCals): 2,172 Lower Limit Protein Factor (Grams per Kg): 1.5 Upper Limit Protein Factor (Grams per Kg): 2.0 Lower Protein Needs (Protein): 81 Upper Protein Needs (Protein): 109 Dietitian Reviewed in Medical Record: Current diet, Curent medications, Intake & Output, Labs, Medical history Diet Order: Regular Oral Diet Intake Amount: Excellent 90%+ Assessment Assessment: Pt is at high nutrition risk 2' to low BMI. Po intake is good at this time. Will send [employer] on trays for added nutrition. RD will monitor acceptance. Might[employer] Shakes provide 300 kcals/ 9 gms protein/6 oz serving. Recommendations: Continue regular diet Might[employer] tid RD following Dietitian to Monitor: Lab values, Supplement acceptance, Intake & Output, Diet tolerance, Weight change, PO Intake, Medical course
--- NOTE | 2018-08-21 15:40 | P.DCO ---
- Diagnosis (1) Fracture of femur, intertrochanteric, left, closed Status: Acute (2) Fracture of pelvis Status: Acute (3) Forehead laceration Status: Acute (4) Subtrochanteric fracture of left femur Status: Acute - Physical Therapy Order: Evaluate and treat, Improve ambulation, Strength and gait training - Home Health Nursing Order: Medical education, Signs/symptoms of disease process, Medication education-adverse effect, Nursing assessment with vital signs - Case Management Consult Case Management Consult-Home Health: Yes - Certification I have seen patient Lonnie Reyes on 08/21/18. My clinical findings support the need for the requested home health care services because: Limited mobility due to disease progression, Deconditioned with increased weakness, Medication compliance is questionable, Limited ability to care for self, High risk of falls I certify that my clinical findings support that this patient is homebound because: Post-op weakness, Impaired cognitive ability/safety, Unsteady gait/balance, Unsafe to leave home unassisted, Unable to use public transportation (1) Fracture of femur, intertrochanteric, left, closed Qualifiers: Encounter type: initial encounter Fracture alignment: displaced Qualified Code(s): S72.142A - Displaced intertrochanteric fracture of left femur, initial encounter for closed fracture (2) Fracture of pelvis Qualifiers: Encounter type: initial encounter Pelvic bone location: pubis Sublocation of pubis: other portion of pubis Fracture type: closed Laterality: unspecified laterality Qualified Code(s): S32.599A - Other specified fracture of unspecified pubis, initial encounter for closed fracture (3) Forehead laceration Qualifiers: Encounter type: initial encounter Qualified Code(s): S01.81XA - Laceration without foreign body of other part of head, initial encounter (4) Subtrochanteric fracture of left femur Qualifiers: Encounter type: initial encounter Fracture type: closed Fracture alignment: displaced Qualified Code(s): S72.22XA - Displaced subtrochanteric fracture of left femur, initial encounter for closed fracture
--- NOTE | 2018-08-21 21:41 | P.PNOP ---
Subjective Interval history: Complains of left leg pain, better with medications. Physical Exam Vital signs: Vital Signs 08/21/18 00:00 08/21/18 04:00 08/21/18 08:00 Temperature 98.0 F 98.5 F 97.8 F Pulse Rate 73 82 80 Respiratory Rate 18 18 18 Blood Pressure 102/54 L 98/53 L 104/52 L Pulse Oximetry 96 97 96 08/21/18 12:00 08/21/18 16:00 08/21/18 20:00 Temperature 98.5 F 99.0 F 98.0 F Pulse Rate 78 85 98 H Respiratory Rate 18 18 17 Blood Pressure 105/53 L 108/55 L 107/55 L Pulse Oximetry 98 100 97 Intake & Output 08/21/18 08/21/18 08/22/18 06:59 18:59 06:59 Intake Total 1100 / 1100 Output Total 1600 / 1600 230 / 230 Balance -500 / -500 -230 / -230 Weight 54.3 kg Intake: IV 500 / 500 NS Inj 1,000 ML @ 100 mls/hr IV 500 / 500 .CONT .Q10H [facility] Rx#:[id number] Oral 600 / 600 Output: Urine 1100 / 1100 230 / 230 Urine Amount (Catheter) 500 / 500 Indwelling Urethral Catheter 500 / 500 Other: # Bowel Movements 0 Narrative: LLE bandages clean, dry, intact. 2+DP. Wiggles toes, sensation intact. - Urinary Catheter Management Indwelling Urethral Catheter Cath placed during this visit: yes, but has since been removed by the nurse Reason for continuing: Hourly intake/output Insertion date: 08/19/18 Insertion time: 18:30 Removal date: 08/21/18 Removal time: 09:30 Results - Labs CBC & Chem 7: 08/21/18 04:09 08/21/18 04:09 Laboratory Results - last 24 hr 08/21/18 08/21/18 04:09 04:09 WBC 10.0 RBC 3.51 L Hgb 10.3 L Hct 29.9 L MCV 85.4 MCH 29.5 MCHC 34.5 RDW 13.0 Plt Count 130 L MPV 9.0 Neut % (Auto) 87.5 H Lymph % (Auto) 5.6 L [place] % (Auto) 6.8 Eos % (Auto) 0.0 Baso % (Auto) 0.1 Neut # (Auto) 8.8 H Lymph # (Auto) 0.6 L [place] # (Auto) 0.7 Eos # (Auto) 0.0 Baso # (Auto) 0.0 WBC Differential . Differential Comment Auto diff final Sodium 140 Potassium 4.3 Chloride 107 Carbon Dioxide 27.4 Anion Gap 6 BUN 9 Creatinine 0.73 Estimated GFR Greater than 89 Random Glucose 132 H Calcium 8.0 L Assessment and Plan - Assessment and Plan 27 year old male POD1 s/p ORIF left subtrochanteric femur fracture, nonop treatment left sacral fracture and bilateral pubic rami fractures Plan: TTWB LLE due to sacral fracture WBAT RLE PT eval/treat Dressing changes with dry sterile gauze beginning POD2 Pain control DVT prophylaxis: Lovenox D/c planning OK to discharge from orthopedic standpoint, follow up in [address] Angelo
[2018-08-22] MEDS: Methocarbamol 500 MG Tablet PO SCH ×2 (05:21→15:11)
[2018-08-22] MEDS: Morphine Inj 4 MG/ML Vial IV.PUSH PRN (06:14)
[2018-08-22] MEDS: Senna/Docusate Sodium 8.6/50 MG Tablet PO SCH (08:43)
[2018-08-22] MEDS: Famotidine 20 MG Tablet PO SCH (08:44)
[2018-08-22] MEDS: Enoxaparin Inj 30 MG/0.3 ML Syringe SQ SCH (08:44)
[2018-08-22 14:17] VITALS: BP 125/71; PULSE 91; RESP 18; TEMP 97.9; O2SAT 98
--- NOTE | 2018-08-22 14:38 | P.PN ---
Subjective Interval history: Trauma PTD: 3 Patient lying in bed. No distress noted. Endorses pain to left lower extremity. Physical Exam Vital signs: Vital Signs 08/21/18 16:00 08/21/18 20:00 08/21/18 23:42 Temperature 99.0 F 98.0 F 98.0 F Pulse Rate 85 98 H 93 H Respiratory Rate 18 17 17 Blood Pressure 108/55 L 107/55 L 114/56 L Pulse Oximetry 100 97 97 08/21/18 23:55 08/22/18 08:00 08/22/18 12:00 Temperature 97.7 F 97.9 F Pulse Rate 93 H 91 H Respiratory Rate 18 17 18 Blood Pressure 107/58 L 125/71 Pulse Oximetry 95 98 Intake & Output 08/21/18 08/22/18 08/22/18 18:59 06:59 18:59 Intake Total 800 / 800 Output Total 230 / 230 Balance -230 / -230 800 / 800 Weight 54.3 kg Intake: Oral 800 / 800 Output: Urine 230 / 230 Other: # Voids 1 Date of Last Bowel Movement 08/22/18 # Bowel Movements 0 1 Narrative: GENERAL: This is a 27-year-old male lying in bed. No distress noted. SKIN: Warm and dry. HEAD: Atraumatic. Normocephalic. EYES: PERRLA ENT: No nasal bleeding or discharge. Mucous membranes pink and moist. NECK: Trachea midline. No JVD. CARDIOVASCULAR: Regular rate and rhythm. RESPIRATORY: No accessory muscle use. Lungs are clear to auscultation. Breath sounds equal bilaterally. No distress or dyspnea. GASTROINTESTINAL: BS + x 4 quads. Abdomen soft, non-tender, nondistended. MUSCULOSKELETAL: Extremities without cyanosis, or edema. + peripheral pulses x 4 extremities. Warm with good capillary refill and sensation. MAEW and to command. NEUROLOGICAL: Awake and alert. Normal speech and pattern. - Urinary Catheter Management Indwelling Urethral Catheter Cath placed during this visit: yes, but has since been removed by the nurse Reason for continuing: Hourly intake/output Insertion date: 08/19/18 Insertion time: 18:30 Removal date: 08/21/18 Removal time: 09:30 Results - Labs CBC & Chem 7: 08/21/18 04:09 08/21/18 04:09 Assessment and Plan - Assessment (1) Fracture of femur, intertrochanteric, left, closed Code(s): S72.142A - Displaced intertrochanteric fracture of left femur, initial encounter for closed fracture Status: Acute (2) Fracture of pelvis Code(s): S32.9XXA - Fracture of unspecified parts of lumbosacral spine and pelvis, initial encounter for closed fracture Status: Acute (3) Forehead laceration Code(s): S01.81XA - Laceration without foreign body of other part of head, initial encounter Status: Acute (4) Subtrochanteric fracture of left femur Code(s): S72.22XA - Displaced subtrochanteric fracture of left femur, initial encounter for closed fracture Status: Acute - Plan [place]: This is a 27-year-old male who sustained a fall. He fell approximately 20 feet landing on the concrete. Positive LOC. INJURIES: Forehead lac (sutures) Concussion BILAT superior and inferior pubic rami fxs (non-op) Sacral fx (non-op) Subtrochanteric LEFT femur fx PMHx: Current smoker Procedures: 08/20: ORIF LEFT femur fx Consults: Orthopedics. Case management. Diet: Regular diet. Tolerating po diet. Encourage good po intake with each meal. Pulmonary: Encourage good pulmonary toileting. IS at bedside and pt encouraged to use. Rationale for use explained to patient, and verbalized understanding. PAIN Management: Oxycodone 5-10mg q4h. Morphine 4mg q4h for breakthrough pain. Robaxin 500 mg q8h Activity: OOB. PT and OT ordered. (TTWE LLE; WBAT RLE) GI prophylaxis: Pepcid 20 mg BID po Bowel regimen: Jacqueline-colace. MOM. Lactulose PRN. LBM: 0 DVT prophylaxis: Mechanical VTE with SCDs. Chemical management with Lovenox 30 mg BID SQ. DC Planning: Case management consulted for assistance with final discharge disposition. PT recommends [facility] PT. [id number] completed. Unfortunately patient does not have insurance nor payer source. Patient provided with an outpatient physical therapy prescription. DME ordered. Patient is clear from a trauma surgery standpoint to discharge home. Emotional support provided to patient and family at bedside and plan of care discussed. Discussed with RN at bedside. Discussed pt condition and plan of care with collaborating trauma surgeon. Patient is hemodynamically stable and being managed on the med/surg floor. The trauma team will round each day, and evaluate plan of care on a daily basis. Forehead lac (sutures) Concussion Supportive care Serial neuro checks Prevent secondary head injury Postconcussive education Follow-up in concussion clinic outpatient Wash suture line daily with soap and water. Pat dry. Leave open to air. BILAT superior and inferior pubic rami fxs (non-op) Sacral fx (non-op) Subtrochanteric LEFT femur fx Orthopedics consulted and assisting in management and care 08/20: ORIF LEFT femur fx Supportive care Antibiotic per orthopedics -complete Dressing changes per orthopedic recommendations Pain management Encourage out of bed PT and OT ordered TTWE LLE; WBAT RLE Bowel regimen SCDs and Lovenox for DVT prophylaxis Follow-up with orthopedics outpatient Pre-existing conditions Current every day smoker Smoking cessation education (1) Fracture of femur, intertrochanteric, left, closed Qualifiers: Encounter type: initial encounter Fracture alignment: displaced Qualified Code(s): S72.142A - Displaced intertrochanteric fracture of left femur, initial encounter for closed fracture (2) Fracture of pelvis Qualifiers: Encounter type: initial encounter Pelvic bone location: pubis Sublocation of pubis: other portion of pubis Fracture type: closed Laterality: unspecified laterality Qualified Code(s): S32.599A - Other specified fracture of unspecified pubis, initial encounter for closed fracture (3) Forehead laceration Qualifiers: Encounter type: initial encounter Qualified Code(s): S01.81XA - Laceration without foreign body of other part of head, initial encounter (4) Subtrochanteric fracture of left femur Qualifiers: Encounter type: initial encounter Fracture type: closed Fracture alignment: displaced Qualified Code(s): S72.22XA - Displaced subtrochanteric fracture of left femur, initial encounter for closed fracture
--- NOTE | 2018-08-22 22:22 | P.PNOP ---
Subjective Interval history: No new issues. Complains of left hip pain worse when out of bed. Physical Exam Vital signs: Vital Signs 08/21/18 23:42 08/21/18 23:55 08/22/18 08:00 Temperature 98.0 F 97.7 F Pulse Rate 93 H 93 H Respiratory Rate 17 18 17 Blood Pressure 114/56 L 107/58 L Pulse Oximetry 97 95 08/22/18 12:00 Temperature 97.9 F Pulse Rate 91 H Respiratory Rate 18 Blood Pressure 125/71 Pulse Oximetry 98 Intake & Output 08/22/18 08/22/18 08/23/18 06:59 18:59 06:59 Intake Total 800 / 800 Balance 800 / 800 Weight 54.3 kg Intake: Oral 800 / 800 Other: # Voids 1 Date of Last Bowel Movement 08/22/18 # Bowel Movements 1 Narrative: LLE dressings intact, 2+DP, wiggles all toes, sensation intact - Urinary Catheter Management Indwelling Urethral Catheter Cath placed during this visit: yes, but has since been removed by the nurse Reason for continuing: Hourly intake/output Insertion date: 08/19/18 Insertion time: 18:30 Removal date: 08/21/18 Removal time: 09:30 Results - Labs CBC & Chem 7: 08/21/18 04:09 08/21/18 04:09 Assessment and Plan - Assessment and Plan 27 year old male POD2 s/p ORIF left subtrochanteric femur fracture, nonop treatment left sacral fracture and bilateral pubic rami fractures Plan: TTWB LLE due to sacral fracture WBAT RLE Continue PT Dressing changes with dry sterile gauze beginning POD2 Pain control DVT prophylaxis: Lovenox D/c planning OK to discharge from orthopedic standpoint, follow up in [address] Angelo
--- NOTE | 2018-08-23 13:22 | P.DS ---
Date of admission: 08/19/18 15:17 Primary care physician: No Primary Care Physician Attending physician on discharge: Kerrie Galaviz Anticipated date of discharge: 08/22/18 Brief History from admission: Fall. DS: Diagnosis - Discharge Diagnosis (1) Fracture of femur, intertrochanteric, left, closed Status: Acute (2) Fracture of pelvis Status: Acute (3) Forehead laceration Status: Acute (4) Subtrochanteric fracture of left femur Status: Acute DS: Medications - Discharge Medications Prescriptions: methocarbamol 500 mg PO Q8HR PRN 7 Days #21 tab PRN Reason: muscle spasms oxycodone-acetaminophen [Percocet] 1 tab PO Q4H PRN 3 Days #18 tab PRN Reason: Pain DS: Summary Hospital Course: WAINWRIGHT: This is a 27-year-old male who sustained a fall. He fell approximately 20 feet landing on the concrete. Positive LOC. INJURIES: Forehead lac (sutures) Concussion BILAT superior and inferior pubic rami fxs (non-op) Sacral fx (non-op) Subtrochanteric LEFT femur fx PMHx: Current smoker Procedures: 08/20: ORIF LEFT femur fx Consults: Orthopedics. Case management. Patient really wants to go home today. Has numerous family members to assist him at home. The patient is now tolerating a po diet. Eating and drinking well. Pain is being managed well with PO pain medications, and patient is being a provided with a script for pain meds upon discharge. [This patient will be prescribed narcotic pain medications due to his traumatic injuries. The patient has a normal physiological response to severe traumatic injuries and surgery. He will need acute pain management with prescribed narcotic treatment. The [employer] prescription drug monitoring program database has been queried.] (NO driving while taking narcotic pain medication enforced to patient.) We have recommended to patient to continue with stool softeners while taking narcotic pain medications to prevent constipation. Pt has been participating in PT and OT while admitted at [place] and has been ambulating with their assistance and independently. PT recommends [facility] PT, however patient does not have insurance nor payer source. Patient provided with an outpatient prescription for PT/OT. Patient is provided a annelise walker. All follow up appointments have been provided and discussed with the patient. It is recommended that the patient keeps all his follow up appointments for continued recovery. Patient's condition and plan of care discussed with collaborating trauma surgeon. He is agreeable to plan for discharge today. Therefore, the patient is stable to be safely discharged home from a trauma surgery standpoint. Thank you for allowing us to participate in his care. We wish Lonnie the best in his recovery. Forehead lac (sutures) Concussion Supportive care Serial neuro checks Prevent secondary head injury Postconcussive education Follow-up in concussion clinic outpatient Wash suture line daily with soap and water. Pat dry. Leave open to air. Suture removal in 3-5 days. BILAT superior and inferior pubic rami fxs (non-op) Sacral fx (non-op) Subtrochanteric LEFT femur fx Orthopedics consulted and assisting in management and care 08/20: ORIF LEFT femur fx Supportive care Antibiotic per orthopedics -complete Dressing changes per orthopedic recommendations Pain management Encourage out of bed PT and OT ordered TTWE LLE; WBAT RLE Bowel regimen SCDs and Lovenox for DVT prophylaxis Follow-up with orthopedics outpatient Pre-existing conditions Current every day smoker Smoking cessation education - Time Spent with Patient Total time spent providing and/or coordinating discharge services: Greater than 30 minutes - Quality: VTE Deep Vein Thrombosis/Pulmonary Embolism Present on Admission: No Exam Vital signs: Intake & Output 08/22/18 08/23/18 08/23/18 18:59 06:59 18:59 Other: Date of Last Bowel Movement 08/22/18 Narrative: GENERAL: This is a 27-year-old male lying in bed. No distress noted. SKIN: Warm and dry. Forehead sutures noted, CERTIFIED [employer] H[employer]ER. HEAD: Atraumatic. Normocephalic. EYES: PERRLA ENT: No nasal bleeding or discharge. Mucous membranes pink and moist. NECK: Trachea midline. No JVD. CARDIOVASCULAR: Regular rate and rhythm. RESPIRATORY: No accessory muscle use. Lungs are clear to auscultation. Breath sounds equal bilaterally. No distress or dyspnea. GASTROINTESTINAL: BS + x 4 quads. Abdomen soft, non-tender, nondistended. MUSCULOSKELETAL: Extremities without cyanosis, or edema. + peripheral pulses x 4 extremities. Warm with good capillary refill and sensation. MAEW and to command. NEUROLOGICAL: Awake and alert. Normal speech and pattern. Results Procedures completed during hospitalization: . - Impressions ITS Impressions Abdomen/Pelvis CT 08/19/18 12:45 CONCLUSION: 1. There is a spiral displaced fracture involving the trochanteric to subtrochanteric region of the proximal left femur. 2. Nondisplaced fracture involving the body of the left sacrum. 3. Bilateral fractures involving the superior and inferior pubic rami. 4. 5 mm nonobstructing stone midpole right kidney. Chest CT 08/19/18 12:45 CONCLUSION: 1. No focal or acute intrathoracic disease. Chest X-Ray 08/19/18 12:45 CONCLUSION: Negative for acute process Pelvis X-Ray 08/19/18 12:45 CONCLUSION: 1. There is a spiral type fracture involving the subtrochanteric region of the left proximal femur. 2. There appear to be bilateral pelvic fractures. This will be further evaluated with a CT scan of the abdomen/pelvis. Cervical Spine CT 08/19/18 12:46 CONCLUSION: 1. Minimal disc bulging without fracture. 2. I Do not see significant degenerative change 3. MRI can offer more information. Head CT 08/19/18 12:46 CONCLUSION: 1. No focal or acute intracranial hemorrhage. . . Femur X-Ray 08/20/18 00:00 CONCLUSION: 1. Left femoral ORIF, as above. Discharge Plan - Discharge Disposition Patient Disposition: 01 Discharge Home - Discharge Condition Condition: Stable - Discharge Order Discharge Orders: Discharge Order (Routine); Ordered 08/22/18 Ordered By: Marizol Mendoza - Discharge Details Anticipated Discharge Date: 08/22/18 Discharge Comment: Dc home w/ Out patient PT script - Physicians Team Primary Care Provider: Primary Care Physici,No Attending Provider: Otoniel Childs Other Providers: Shirlene Angelo MD ; Cuate Adams MD ; Rafal Mendosa MD ; [employer] ; Otoniel Childs MD ; Marizol Mendoza ARNP ; Pako Peng MD ; Candie Cheung MD ; Eleazar Garvey ARNP ; Kerrie Galaviz MD
== END 2018-08-22 16:13 | disposition home or self-care (01) | DRG 956 ==
LOC: NEPI 12:43 → EDBD 15:17 → NEDA 15:17 → N07 19:05
PROVIDERS: ADMIT Surgery; ATTEND Surgery
CPT/HCPCS: 12013; 51798; 70450; 71010; 71045; 71260; 72125; 72170; 73551; 73552; 74177; 76000; 76775; 80048; 82435; 82565; 82947; 84132; 84295; 84520; 85025; 85610; 85730; 86850; 86900; 86901; 90471; 90715; 90774; 90775; 90776; 90784; 93005; 94150; 96374; 96375; 96376; 97162; 97167; 97530; 99285; 99291; C1713; C8952; G0390; J0330; J0690; J1100; J1580; J1650; J2175; J2270; J2370; J2405; J2704; J2710; J3010; J7030; J7120; Q9967